=== PATIENT | male | born 1950 | race Two or more races ===

== ENCOUNTER 2021-05-15 11:25 | Inpatient (IN) | payer OTHER, MEDICAID ==
[~2021-05-15] VITALS: Ht 177.8 cm; Wt 82.2 kg
[2021-05-15] MEDS ORDERED: DexAMETHasone SOD PHOS 10MG/1ML VIAL INJ IV ONE (11:45)
[2021-05-15] MEDS ORDERED: ZINC SULFATE 220mg CAP or TAB PO ONE (11:45)
[2021-05-15] MEDS ORDERED: AZITHROMYCIN 500MG/ 250ML 250 ML IV ONE (11:45)
[2021-05-15] MEDS ORDERED: cefTRIAXone 1GM/50ML D5W 50 ML IV ONE (11:45)
[2021-05-15 12:05] LABS: Basophils # (auto) 0 10 ^3/uL (0-0.2); Basophils % (auto) 0.1 % (0.0-2.0); Eosinophils # (auto) 0 10 ^3/uL (0-0.8); Eosinophils % (auto) 0.1 % (0.0-7.0); Hematocrit 42.4 % (41.0-53.0); Hemoglobin 14.6 g/dL (13.5-17.5); Lymphocytes # (auto) 0.7 10 ^3/uL (0.4-5.4); Lymphocytes % (auto) 5.1 % (10.0-50.0); Mean Corpuscular Hemoglobin 31.2 pg (28.0-32.0); Mean Corpuscular Hgb Conc. 34.4 g/dL (32.0-36.0); Mean Corpuscular Volume 90.6 fL (80.0-100.0); Monocytes # (auto) 0.4 10 ^3/uL (0-1.3); Monocytes % (auto) 2.9 % (0.0-12.0); Neutrophils # (auto) 12.5 10 ^3/uL (1.6-8.6); Neutrophils % (auto) 91.8 % (37.0-80.0); Nucleated Red Blood Cells % 0.1 %; Red Blood Cells 4.68 10^6/uL (4.5-5.90); Red Cell Distribution Width 12.8 % (11.8-14.3); White Blood Cell 13.6 10^3/uL (4.4-10.8)
[2021-05-15 12:29] LABS: Albumin 2.5 g/dL (3.4-5.0); Anion Gap 14 (5-15); Blood Urea Nitrogen 26 mg/dL (7-18); Calcium 7.7 mg/dL (8.5-10.1); Carbon Dioxide 23 mmol/L (21-32); Chloride 89 mmol/L (98-107); Glucose 203 mg/dL (74-106); Potassium 3.7 mmol/L (3.5-5.1); Sodium 126 mmol/L (136-145)
[2021-05-15 12:33] LABS: Alanine Aminotransferase 44 U/L (16-61); Alkaline Phosphatase 90 U/L (45-117); Aspartate Aminotransferase 65 U/L (15-37); GFR African American 63 mL/min; GFR Non-African American 52 mL/min; Total Protein 7.8 g/dL (6.4-8.2)
[2021-05-15 13:03] LABS: BUN/Creatinine Ratio 18.2
[2021-05-15 13:07] LABS: CRP High Sensitivity > 0.950 mg/dL (< 0.3)
[2021-05-15] MEDS ORDERED: NITROGLYCERIN 0.4 MG SL TAB SL PRN (14:15)
[2021-05-15] MEDS ORDERED: ONDANSETRON HCL 4 MG/2 ML VIAL IV PRN ×2 (14:15→19:30)
[2021-05-15] MEDS ORDERED: HYDROcodone-ACET 5/325MG TAB PO PRN (14:15)
[2021-05-15] MEDS ORDERED: MORPHINE SULFATE 4 MG/ML SYR/VIAL IV PRN (14:15)
[2021-05-15] MEDS ORDERED: MORPHINE SULFATE INJECTION 2 MG/ML SYRG IV PRN (14:15)
[2021-05-15] MEDS ORDERED: ACETAMINOPHEN 325 MG TAB PO PRN (14:15)
[2021-05-15] MEDS ORDERED: DEXTROSE (50%) 50ML SYRG IV PRN (14:15)
[2021-05-15] MEDS ORDERED: DOCUSATE SOD 100 MG CAP PO PRN (14:15)
[2021-05-15 14:31] LABS: INR 1.18 (0.9-1.15)
[2021-05-15 14:37] VITALS: BP 120/69
[2021-05-15 16:43] VITALS: BP 114/71
[2021-05-15] MEDS: ACCU-CHEK COMFORT CURVE STRIP VI SCH ×2 (17:41→21:29)
[2021-05-15] MEDS: InsuLIN REG 1unit/0.01ml Soln (100units/ml) SC SCH ×2 (17:44→21:38)
[2021-05-15] MEDS ORDERED: hydrALAZINE HCL 20 MG/ML VL IV PRN (19:30)
[2021-05-15 21:06] VITALS: BP 122/74
[2021-05-15] MEDS: ASCORBIC ACID 500 MG TAB PO SCH (21:28)
[2021-05-15] MEDS: ENOXAPARIN SOD 40 MG/0.4 ML SYRINGE SC SCH (22:00)
[2021-05-15] MEDS: ALBUTEROL SULF HFA 90MCG INH 200DOSE IN SCH (22:00)
[2021-05-16 05:00] VITALS: BP 119/70
[2021-05-16 06:23] LABS: Hematocrit 39.5 % (41.0-53.0); Hemoglobin 13.9 g/dL (13.5-17.5); Mean Corpuscular Hemoglobin 31.6 pg (28.0-32.0); Mean Corpuscular Hgb Conc. 35.1 g/dL (32.0-36.0); Mean Corpuscular Volume 90.2 fL (80.0-100.0); Red Blood Cells 4.39 10^6/uL (4.5-5.90); Red Cell Distribution Width 12.8 % (11.8-14.3); White Blood Cell 12.1 10^3/uL (4.4-10.8)
[2021-05-16 06:37] LABS: Potassium 3.6 mmol/L (3.5-5.1)
[2021-05-16 06:42] LABS: Albumin 2.3 g/dL (3.4-5.0); BUN/Creatinine Ratio 28.2; Bilirubin, Total 0.7 mg/dL (0.2-1.0); Calcium 7.6 mg/dL (8.5-10.1); Total Protein 6.8 g/dL (6.4-8.2)
[2021-05-16] MEDS: ACCU-CHEK COMFORT CURVE STRIP VI SCH ×4 (06:46→21:31)
[2021-05-16] MEDS: InsuLIN REG 1unit/0.01ml Soln (100units/ml) SC SCH ×4 (06:59→21:31)
[2021-05-16] MEDS: ALBUTEROL SULF HFA 90MCG INH 200DOSE IN SCH ×3 (07:17→20:59)
[2021-05-16 07:22] LABS: Basophils % (manual) 0 (0.0-2.0); Blast Cells 0; Eosinophils % (manual) 0 (0-7); Metamyelocytes % 0; Promyelocytes % 0; Reactive Lymphocytes 0
[2021-05-16] MEDS: ENOXAPARIN SOD 40 MG/0.4 ML SYRINGE SC SCH (08:42)
[2021-05-16] MEDS: ZINC SULFATE 220mg CAP or TAB PO SCH (08:43)
[2021-05-16] MEDS: FAMOTIDINE (10MG/ML) 2ML VL IV SCH (08:43)
[2021-05-16] MEDS: DexAMETHasone SOD PHOS 10MG/1ML VIAL INJ IV SCH (08:43)
[2021-05-16] MEDS: MULTIPLE VITAMIN TAB PO SCH (08:44)
[2021-05-16] MEDS: AZITHROMYCIN 500MG/ 250ML 250 ML IV SCH (08:44)
[2021-05-16] MEDS: ASCORBIC ACID 500 MG TAB PO SCH ×2 (08:44→21:31)
[2021-05-16] MEDS: CHOLECALCIFEROL (VITD3) 2,000 UNIT CAP/TAB PO SCH (08:44)
[2021-05-16 08:46] VITALS: BP 124/77
[2021-05-16 08:53] LABS: Band Neutrophils % (manual) 3; Lymphocytes % (manual) 2 (10.0-50.0); Monocytes % (manual) 5 (0-12); Myelocytes % 1
[2021-05-16] MEDS ORDERED: ENOXAPARIN SOD 40 MG/0.4 ML SYRINGE SC SCH (10:00)
[2021-05-16 12:48] VITALS: BP 131/90
[2021-05-16 16:42] VITALS: BP 130/80
[2021-05-16] MEDS ORDERED: IOHEXOL 350 MG/ML 100ML IJ ONE (17:57)
[2021-05-16] MEDS: ENOXAPARIN SOD 100 MG/1 ML SYRINGE SC SCH (21:31)
[2021-05-16 22:00] VITALS: BP 125/74
[2021-05-17 05:00] VITALS: BP 115/73
[2021-05-17] MEDS: ACCU-CHEK COMFORT CURVE STRIP VI SCH ×4 (06:24→22:00)
[2021-05-17] MEDS: InsuLIN REG 1unit/0.01ml Soln (100units/ml) SC SCH ×4 (06:24→22:35)
[2021-05-17 06:49] LABS: Hematocrit 38.7 % (41.0-53.0); Hemoglobin 13.9 g/dL (13.5-17.5); Mean Corpuscular Hemoglobin 32.3 pg (28.0-32.0); Mean Corpuscular Hgb Conc. 35.9 g/dL (32.0-36.0); Red Cell Distribution Width 12.6 % (11.8-14.3); White Blood Cell 11.8 10^3/uL (4.4-10.8)
[2021-05-17 06:51] LABS: Basophils % (manual) 0 (0.0-2.0); Blast Cells 0; Eosinophils % (manual) 0 (0-7); Myelocytes % 0; Promyelocytes % 0; Reactive Lymphocytes 0
[2021-05-17 06:52] LABS: Calcium 7.8 mg/dL (8.5-10.1); Potassium 3.7 mmol/L (3.5-5.1)
[2021-05-17 07:00] LABS: BUN/Creatinine Ratio 30.7; CRP High Sensitivity 10.9 mg/dL (< 0.3)
[2021-05-17 08:21] LABS: Band Neutrophils % (manual) 5; Lymphocytes % (manual) 1 (10.0-50.0); Metamyelocytes % 1; Monocytes % (manual) 3 (0-12)
[2021-05-17 08:32] VITALS: BP 130/75
[2021-05-17] MEDS: ALBUTEROL SULF HFA 90MCG INH 200DOSE IN SCH ×3 (09:15→19:31)
[2021-05-17] MEDS: FAMOTIDINE (10MG/ML) 2ML VL IV SCH (10:09)
[2021-05-17] MEDS: DexAMETHasone SOD PHOS 10MG/1ML VIAL INJ IV SCH (10:09)
[2021-05-17] MEDS: ENOXAPARIN SOD 100 MG/1 ML SYRINGE SC SCH ×2 (10:12→21:30)
[2021-05-17] MEDS: MULTIPLE VITAMIN TAB PO SCH (10:16)
[2021-05-17] MEDS: ZINC SULFATE 220mg CAP or TAB PO SCH (10:16)
[2021-05-17] MEDS: ASCORBIC ACID 500 MG TAB PO SCH ×2 (10:16→21:30)
[2021-05-17] MEDS: ASPirin 81 mg TAB PO SCH (10:16)
[2021-05-17] MEDS: CHOLECALCIFEROL (VITD3) 2,000 UNIT CAP/TAB PO SCH (10:17)
[2021-05-17] MEDS: AZITHROMYCIN 500MG/ 250ML 250 ML IV SCH (10:17)
[2021-05-17 12:35] VITALS: BP 134/78
[2021-05-17 12:47] LABS: Urine Bacteria NONE SEEN /hpf (None Seen); Urine Blood TRACE /uL (Negative); Urine WBC 1 /hpf (0 - 3)
[2021-05-17 17:00] VITALS: BP 121/69
[2021-05-17 22:00] VITALS: BP 121/77
[2021-05-18 05:00] VITALS: BP 128/74
[2021-05-18] MEDS: ALBUTEROL SULF HFA 90MCG INH 200DOSE IN SCH ×2 (05:44→19:18)
[2021-05-18 06:11] LABS: Hematocrit 38.9 % (41.0-53.0); Hemoglobin 13.8 g/dL (13.5-17.5); Mean Corpuscular Hgb Conc. 35.5 g/dL (32.0-36.0); Mean Corpuscular Volume 90.1 fL (80.0-100.0); Red Blood Cells 4.31 10^6/uL (4.5-5.90); Red Cell Distribution Width 12.9 % (11.8-14.3); White Blood Cell 9.9 10^3/uL (4.4-10.8)
[2021-05-18 06:39] LABS: Basophils % (manual) 0 (0.0-2.0); Blast Cells 0; Eosinophils % (manual) 0 (0-7); Myelocytes % 0; Promyelocytes % 0; Reactive Lymphocytes 0
[2021-05-18 06:45] LABS: Potassium 3.8 mmol/L (3.5-5.1)
[2021-05-18] MEDS: ACCU-CHEK COMFORT CURVE STRIP VI SCH ×4 (06:50→21:19)
[2021-05-18 06:59] LABS: BUN/Creatinine Ratio 31.3; CRP High Sensitivity 5.24 mg/dL (< 0.3); Calcium 8.2 mg/dL (8.5-10.1)
[2021-05-18] MEDS: InsuLIN REG 1unit/0.01ml Soln (100units/ml) SC SCH ×4 (07:17→21:19)
[2021-05-18 08:00] VITALS: BP 128/75
[2021-05-18 08:15] VITALS: BP 128/74
[2021-05-18] MEDS: ASPirin 81 mg TAB PO SCH (09:45)
[2021-05-18] MEDS: DexAMETHasone SOD PHOS 10MG/1ML VIAL INJ IV SCH (09:48)
[2021-05-18] MEDS: AZITHROMYCIN 500MG/ 250ML 250 ML IV SCH (09:50)
[2021-05-18] MEDS: ZINC SULFATE 220mg CAP or TAB PO SCH (09:50)
[2021-05-18] MEDS: MULTIPLE VITAMIN TAB PO SCH (09:50)
[2021-05-18] MEDS: CHOLECALCIFEROL (VITD3) 2,000 UNIT CAP/TAB PO SCH (09:51)
[2021-05-18] MEDS: ENOXAPARIN SOD 100 MG/1 ML SYRINGE SC SCH ×2 (09:52→21:19)
[2021-05-18] MEDS: FAMOTIDINE (10MG/ML) 2ML VL IV SCH (09:52)
[2021-05-18] MEDS: ASCORBIC ACID 500 MG TAB PO SCH ×2 (10:00→21:19)
[2021-05-18 12:00] VITALS: BP 124/75
[2021-05-18 12:20] LABS: Band Neutrophils % (manual) 4; Lymphocytes % (manual) 2 (10.0-50.0); Metamyelocytes % 1; Monocytes % (manual) 4 (0-12)
[2021-05-18 16:00] VITALS: BP 127/74
[2021-05-18 22:00] VITALS: BP 130/48
[2021-05-19 05:00] VITALS: BP 133/74
[2021-05-19] MEDS: ACCU-CHEK COMFORT CURVE STRIP VI SCH ×4 (06:03→21:22)
[2021-05-19] MEDS: InsuLIN REG 1unit/0.01ml Soln (100units/ml) SC SCH ×4 (06:41→21:27)
[2021-05-19 06:58] LABS: Calcium 7.9 mg/dL (8.5-10.1)
[2021-05-19 07:06] LABS: BUN/Creatinine Ratio 30.3; CRP High Sensitivity 3.83 mg/dL (< 0.3)
[2021-05-19 07:15] LABS: Hematocrit 40.2 % (41.0-53.0); Hemoglobin 14.3 g/dL (13.5-17.5); Mean Corpuscular Hemoglobin 32.3 pg (28.0-32.0); Mean Corpuscular Hgb Conc. 35.5 g/dL (32.0-36.0); Red Blood Cells 4.42 10^6/uL (4.5-5.90); Red Cell Distribution Width 12.8 % (11.8-14.3); White Blood Cell 9.9 10^3/uL (4.4-10.8)
[2021-05-19 07:27] LABS: Band Neutrophils % (manual) 0; Basophils % (manual) 0 (0.0-2.0); Blast Cells 0; Metamyelocytes % 0; Myelocytes % 0; Promyelocytes % 0; Reactive Lymphocytes 0
[2021-05-19] MEDS: ALBUTEROL SULF HFA 90MCG INH 200DOSE IN SCH (07:38)
[2021-05-19 08:00] VITALS: BP 124/73
[2021-05-19] MEDS: DexAMETHasone SOD PHOS 10MG/1ML VIAL INJ IV SCH (09:30)
[2021-05-19] MEDS: AZITHROMYCIN 500MG/ 250ML 250 ML IV SCH (09:30)
[2021-05-19] MEDS: FAMOTIDINE (10MG/ML) 2ML VL IV SCH (09:30)
[2021-05-19] MEDS: MULTIPLE VITAMIN TAB PO SCH (09:31)
[2021-05-19] MEDS: ENOXAPARIN SOD 100 MG/1 ML SYRINGE SC SCH ×2 (09:31→21:23)
[2021-05-19] MEDS: ASPirin 81 mg TAB PO SCH (09:31)
[2021-05-19] MEDS: ASCORBIC ACID 500 MG TAB PO SCH ×2 (09:31→21:22)
[2021-05-19] MEDS: ZINC SULFATE 220mg CAP or TAB PO SCH (09:31)
[2021-05-19] MEDS: CHOLECALCIFEROL (VITD3) 2,000 UNIT CAP/TAB PO SCH (09:32)
[2021-05-19 09:47] LABS: Eosinophils % (manual) 4 (0-7); Lymphocytes % (manual) 10 (10.0-50.0); Monocytes % (manual) 4 (0-12)
[2021-05-19 12:00] VITALS: BP 124/73
[2021-05-19 16:41] VITALS: BP 128/82
[2021-05-19] MEDS: ALBUTEROL SULF HFA 90MCG INH 200DOSE IN PRN (20:38)
[2021-05-20 05:00] VITALS: BP_SYST 107; BP_SYST 154; BP_DIAS 73; BP_DIAS 81
[2021-05-20] MEDS: ACCU-CHEK COMFORT CURVE STRIP VI SCH ×4 (06:21→21:38)
[2021-05-20] MEDS: InsuLIN REG 1unit/0.01ml Soln (100units/ml) SC SCH ×4 (06:21→21:42)
[2021-05-20 06:31] LABS: Hemoglobin 14.2 g/dL (13.5-17.5); Mean Corpuscular Hemoglobin 31.6 pg (28.0-32.0); Mean Corpuscular Hgb Conc. 34.6 g/dL (32.0-36.0); Mean Corpuscular Volume 91.3 fL (80.0-100.0); Red Blood Cells 4.49 10^6/uL (4.5-5.90); Red Cell Distribution Width 12.7 % (11.8-14.3)
[2021-05-20 06:39] LABS: Basophils % (manual) 0 (0.0-2.0); Blast Cells 0; Promyelocytes % 0; Reactive Lymphocytes 0
[2021-05-20 06:40] LABS: BUN/Creatinine Ratio 29.3; Calcium 7.8 mg/dL (8.5-10.1); Potassium 4.1 mmol/L (3.5-5.1)
[2021-05-20 06:49] LABS: CRP High Sensitivity 7.63 mg/dL (< 0.3)
[2021-05-20 08:44] LABS: Band Neutrophils % (manual) 1; Eosinophils % (manual) 2 (0-7); Lymphocytes % (manual) 3 (10.0-50.0); Metamyelocytes % 1; Monocytes % (manual) 2 (0-12); Myelocytes % 1
[2021-05-20 09:00] VITALS: BP 127/74
[2021-05-20] MEDS: DexAMETHasone SOD PHOS 10MG/1ML VIAL INJ IV SCH (09:15)
[2021-05-20] MEDS: MULTIPLE VITAMIN TAB PO SCH (09:16)
[2021-05-20] MEDS: CHOLECALCIFEROL (VITD3) 2,000 UNIT CAP/TAB PO SCH (09:16)
[2021-05-20] MEDS: ASPirin 81 mg TAB PO SCH (09:16)
[2021-05-20] MEDS: ENOXAPARIN SOD 100 MG/1 ML SYRINGE SC SCH ×2 (09:16→21:38)
[2021-05-20] MEDS: FAMOTIDINE (10MG/ML) 2ML VL IV SCH (09:16)
[2021-05-20] MEDS: ZINC SULFATE 220mg CAP or TAB PO SCH (09:17)
[2021-05-20] MEDS: ASCORBIC ACID 500 MG TAB PO SCH ×2 (09:17→21:38)
[2021-05-20] MEDS: AZITHROMYCIN 500MG/ 250ML 250 ML IV SCH (10:30)
[2021-05-20 13:00] VITALS: BP 131/81
[2021-05-20 16:57] VITALS: BP 119/78
[2021-05-20] MEDS: ALBUTEROL SULF HFA 90MCG INH 200DOSE IN PRN (21:43)
[2021-05-20 22:00] VITALS: BP 123/74
[2021-05-21] VITALS (7 sets, daily range): BP systolic 120–144; BP diastolic 68–86
[2021-05-21] MEDS: ALBUTEROL SULF HFA 90MCG INH 200DOSE IN PRN ×3 (05:49→23:09)
[2021-05-21] MEDS: ACCU-CHEK COMFORT CURVE STRIP VI SCH ×4 (06:13→22:00)
[2021-05-21] MEDS: InsuLIN REG 1unit/0.01ml Soln (100units/ml) SC SCH ×4 (06:16→22:00)
[2021-05-21 06:59] LABS: Hematocrit 38.7 % (41.0-53.0); Hemoglobin 13.4 g/dL (13.5-17.5); Mean Corpuscular Hemoglobin 31.5 pg (28.0-32.0); Mean Corpuscular Hgb Conc. 34.7 g/dL (32.0-36.0); Mean Corpuscular Volume 90.6 fL (80.0-100.0); Red Blood Cells 4.27 10^6/uL (4.5-5.90); Red Cell Distribution Width 12.9 % (11.8-14.3); White Blood Cell 13.1 10^3/uL (4.4-10.8)
[2021-05-21 07:17] LABS: Potassium 4.6 mmol/L (3.5-5.1)
[2021-05-21 07:20] LABS: Basophils % (manual) 0 (0.0-2.0); Blast Cells 0; Myelocytes % 0; Promyelocytes % 0; Reactive Lymphocytes 0
[2021-05-21 07:32] LABS: BUN/Creatinine Ratio 36.6; Calcium 7.8 mg/dL (8.5-10.1)
[2021-05-21 08:59] LABS: Band Neutrophils % (manual) 3; Eosinophils % (manual) 1 (0-7); Lymphocytes % (manual) 5 (10.0-50.0); Metamyelocytes % 3; Monocytes % (manual) 1 (0-12)
[2021-05-21] MEDS: FAMOTIDINE (10MG/ML) 2ML VL IV SCH (09:32)
[2021-05-21] MEDS: DexAMETHasone SOD PHOS 10MG/1ML VIAL INJ IV SCH (09:32)
[2021-05-21] MEDS: AZITHROMYCIN 500MG/ 250ML 250 ML IV SCH (09:32)
[2021-05-21] MEDS: ZINC SULFATE 220mg CAP or TAB PO SCH (09:33)
[2021-05-21] MEDS: ASCORBIC ACID 500 MG TAB PO SCH ×2 (09:33→22:56)
[2021-05-21] MEDS: ASPirin 81 mg TAB PO SCH (09:33)
[2021-05-21] MEDS: CHOLECALCIFEROL (VITD3) 2,000 UNIT CAP/TAB PO SCH (09:33)
[2021-05-21] MEDS: MULTIPLE VITAMIN TAB PO SCH (09:33)
[2021-05-21] MEDS: ENOXAPARIN SOD 100 MG/1 ML SYRINGE SC SCH ×2 (09:34→22:57)
[2021-05-22 05:00] VITALS: BP 122/70
[2021-05-22 05:56] LABS: Hemoglobin 13.7 g/dL (13.5-17.5); Red Cell Distribution Width 12.9 % (11.8-14.3)
[2021-05-22 06:02] LABS: Mean Corpuscular Hgb Conc. 35.1 g/dL (32.0-36.0); Mean Corpuscular Volume 91.3 fL (80.0-100.0); Red Blood Cells 4.28 10^6/uL (4.5-5.90); White Blood Cell 13.1 10^3/uL (4.4-10.8)
[2021-05-22] MEDS: ALBUTEROL SULF HFA 90MCG INH 200DOSE IN PRN ×2 (06:08→19:43)
[2021-05-22 06:16] LABS: Basophils % (manual) 0 (0.0-2.0); Blast Cells 0; Eosinophils % (manual) 0 (0-7); Metamyelocytes % 0; Myelocytes % 0; Promyelocytes % 0; Reactive Lymphocytes 0
[2021-05-22] MEDS: ACCU-CHEK COMFORT CURVE STRIP VI SCH ×4 (06:17→21:44)
[2021-05-22] MEDS: InsuLIN REG 1unit/0.01ml Soln (100units/ml) SC SCH ×4 (06:17→21:51)
[2021-05-22 06:21] LABS: BUN/Creatinine Ratio 35.6; Potassium 4.6 mmol/L (3.5-5.1)
[2021-05-22 07:24] LABS: CRP High Sensitivity 5.51 mg/dL (< 0.3)
[2021-05-22 08:00] VITALS: BP 125/76
[2021-05-22 09:00] VITALS: BP 125/76
[2021-05-22] MEDS: FAMOTIDINE (10MG/ML) 2ML VL IV SCH (10:29)
[2021-05-22] MEDS: AZITHROMYCIN 500MG/ 250ML 250 ML IV SCH (10:29)
[2021-05-22] MEDS: DexAMETHasone SOD PHOS 10MG/1ML VIAL INJ IV SCH (10:29)
[2021-05-22] MEDS: ASPirin 81 mg TAB PO SCH (10:30)
[2021-05-22] MEDS: ENOXAPARIN SOD 100 MG/1 ML SYRINGE SC SCH ×2 (10:30→21:44)
[2021-05-22] MEDS: CHOLECALCIFEROL (VITD3) 2,000 UNIT CAP/TAB PO SCH (10:30)
[2021-05-22] MEDS: ASCORBIC ACID 500 MG TAB PO SCH ×2 (10:30→21:44)
[2021-05-22] MEDS: MULTIPLE VITAMIN TAB PO SCH (10:30)
[2021-05-22] MEDS: ZINC SULFATE 220mg CAP or TAB PO SCH (10:30)
[2021-05-22 10:45] LABS: Band Neutrophils % (manual) 1
[2021-05-22 10:46] LABS: Lymphocytes % (manual) 5 (10.0-50.0); Monocytes % (manual) 5 (0-12)
[2021-05-22 16:35] VITALS: BP 135/83
[2021-05-22 22:08] VITALS: BP 117/73
[2021-05-23 05:25] VITALS: BP 141/79
[2021-05-23] MEDS: ALBUTEROL SULF HFA 90MCG INH 200DOSE IN PRN (05:57)
[2021-05-23] MEDS: ACCU-CHEK COMFORT CURVE STRIP VI SCH ×4 (06:18→21:22)
[2021-05-23] MEDS: InsuLIN REG 1unit/0.01ml Soln (100units/ml) SC SCH ×4 (06:18→21:35)
[2021-05-23 06:19] LABS: Mean Corpuscular Volume 92.3 fL (80.0-100.0)
[2021-05-23 06:21] LABS: Hematocrit 40.9 % (41.0-53.0); Mean Corpuscular Hemoglobin 31.6 pg (28.0-32.0); Mean Corpuscular Hgb Conc. 34.2 g/dL (32.0-36.0); Red Blood Cells 4.43 10^6/uL (4.5-5.90); Red Cell Distribution Width 12.9 % (11.8-14.3); White Blood Cell 11.1 10^3/uL (4.4-10.8)
[2021-05-23 06:26] LABS: Band Neutrophils % (manual) 0; Basophils % (manual) 0 (0.0-2.0); Blast Cells 0; Eosinophils % (manual) 0 (0-7); Metamyelocytes % 0; Myelocytes % 0; Promyelocytes % 0; Reactive Lymphocytes 0
[2021-05-23 06:43] LABS: Calcium 8.3 mg/dL (8.5-10.1); Potassium 4.8 mmol/L (3.5-5.1)
[2021-05-23 06:54] LABS: BUN/Creatinine Ratio 42.2; CRP High Sensitivity 8.47 mg/dL (< 0.3)
[2021-05-23 08:00] VITALS: BP 140/77
[2021-05-23 09:07] VITALS: BP 140/77
[2021-05-23] MEDS: ZINC SULFATE 220mg CAP or TAB PO SCH (10:16)
[2021-05-23] MEDS: MULTIPLE VITAMIN TAB PO SCH (10:16)
[2021-05-23] MEDS: AZITHROMYCIN 500MG/ 250ML 250 ML IV SCH (10:16)
[2021-05-23] MEDS: ASPirin 81 mg TAB PO SCH (10:16)
[2021-05-23] MEDS: FAMOTIDINE (10MG/ML) 2ML VL IV SCH (10:16)
[2021-05-23] MEDS: CHOLECALCIFEROL (VITD3) 2,000 UNIT CAP/TAB PO SCH (10:17)
[2021-05-23] MEDS: ASCORBIC ACID 500 MG TAB PO SCH ×2 (10:17→21:21)
[2021-05-23] MEDS: ENOXAPARIN SOD 100 MG/1 ML SYRINGE SC SCH ×2 (10:17→21:21)
[2021-05-23 11:54] LABS: Lymphocytes % (manual) 3 (10.0-50.0); Monocytes % (manual) 4 (0-12)
[2021-05-23 13:00] VITALS: BP 120/73
[2021-05-23 16:30] VITALS: BP 118/65
[2021-05-23 22:00] VITALS: BP 108/59
[2021-05-24 05:30] VITALS: BP 119/72
[2021-05-24] MEDS: ALBUTEROL SULF HFA 90MCG INH 200DOSE IN PRN ×2 (05:43→22:43)
[2021-05-24] MEDS: ACCU-CHEK COMFORT CURVE STRIP VI SCH ×4 (06:02→21:47)
[2021-05-24] MEDS: InsuLIN REG 1unit/0.01ml Soln (100units/ml) SC SCH ×4 (06:02→22:20)
[2021-05-24 09:00] VITALS: BP 119/78
[2021-05-24 09:38] VITALS: BP 119/78
[2021-05-24] MEDS: AZITHROMYCIN 500MG/ 250ML 250 ML IV SCH (09:41)
[2021-05-24] MEDS: ASPirin 81 mg TAB PO SCH (09:42)
[2021-05-24] MEDS: ASCORBIC ACID 500 MG TAB PO SCH ×2 (09:42→21:44)
[2021-05-24] MEDS: ZINC SULFATE 220mg CAP or TAB PO SCH (09:42)
[2021-05-24] MEDS: ENOXAPARIN SOD 100 MG/1 ML SYRINGE SC SCH ×2 (09:42→21:47)
[2021-05-24] MEDS: CHOLECALCIFEROL (VITD3) 2,000 UNIT CAP/TAB PO SCH (09:42)
[2021-05-24] MEDS: MULTIPLE VITAMIN TAB PO SCH (09:42)
[2021-05-24] MEDS: FAMOTIDINE (10MG/ML) 2ML VL IV SCH (09:42)
[2021-05-24 13:00] VITALS: BP 117/75
[2021-05-24 17:00] VITALS: BP 124/71
[2021-05-24 22:01] VITALS: BP 110/71
[2021-05-25 05:00] VITALS: BP 112/66
[2021-05-25] MEDS: InsuLIN REG 1unit/0.01ml Soln (100units/ml) SC SCH ×4 (06:05→21:56)
[2021-05-25] MEDS: ACCU-CHEK COMFORT CURVE STRIP VI SCH ×4 (06:05→21:41)
[2021-05-25] MEDS: ALBUTEROL SULF HFA 90MCG INH 200DOSE IN PRN ×2 (08:13→19:33)
[2021-05-25 08:38] VITALS: BP 121/76
[2021-05-25] MEDS: FAMOTIDINE (10MG/ML) 2ML VL IV SCH (09:35)
[2021-05-25] MEDS: MULTIPLE VITAMIN TAB PO SCH (09:36)
[2021-05-25] MEDS: CHOLECALCIFEROL (VITD3) 2,000 UNIT CAP/TAB PO SCH (09:36)
[2021-05-25] MEDS: ZINC SULFATE 220mg CAP or TAB PO SCH (09:36)
[2021-05-25] MEDS: ASCORBIC ACID 500 MG TAB PO SCH ×2 (09:36→21:41)
[2021-05-25] MEDS: ENOXAPARIN SOD 100 MG/1 ML SYRINGE SC SCH ×2 (09:36→21:40)
[2021-05-25] MEDS: ASPirin 81 mg TAB PO SCH (09:36)
[2021-05-25] MEDS: AZITHROMYCIN 500MG/ 250ML 250 ML IV SCH (09:42)
[2021-05-25 12:35] VITALS: BP 115/73
[2021-05-25 16:58] VITALS: BP 109/66
[2021-05-25 22:00] VITALS: BP 118/74
[2021-05-26] VITALS (8 sets, daily range): BP systolic 105–134; BP diastolic 65–79
[2021-05-26] MEDS: ACCU-CHEK COMFORT CURVE STRIP VI SCH ×4 (06:05→21:48)
[2021-05-26] MEDS: InsuLIN REG 1unit/0.01ml Soln (100units/ml) SC SCH ×4 (06:06→21:49)
[2021-05-26] MEDS: FAMOTIDINE (10MG/ML) 2ML VL IV SCH (09:35)
[2021-05-26] MEDS: ASPirin 81 mg TAB PO SCH (09:35)
[2021-05-26] MEDS: ZINC SULFATE 220mg CAP or TAB PO SCH (09:36)
[2021-05-26] MEDS: CHOLECALCIFEROL (VITD3) 2,000 UNIT CAP/TAB PO SCH (09:36)
[2021-05-26] MEDS: MULTIPLE VITAMIN TAB PO SCH (09:36)
[2021-05-26] MEDS: ASCORBIC ACID 500 MG TAB PO SCH ×2 (09:36→21:48)
[2021-05-26] MEDS: ENOXAPARIN SOD 100 MG/1 ML SYRINGE SC SCH (09:37)
[2021-05-26] MEDS: ALBUTEROL SULF HFA 90MCG INH 200DOSE IN PRN ×2 (13:58→21:47)
[2021-05-26] MEDS: APIXABAN 5 MG TAB PO SCH (21:48)
[2021-05-27] VITALS (7 sets, daily range): BP systolic 107–128; BP diastolic 69–81
[2021-05-27] MEDS: ALBUTEROL SULF HFA 90MCG INH 200DOSE IN PRN ×2 (06:07→20:14)
[2021-05-27] MEDS: ACCU-CHEK COMFORT CURVE STRIP VI SCH ×4 (06:18→21:13)
[2021-05-27] MEDS: InsuLIN REG 1unit/0.01ml Soln (100units/ml) SC SCH ×4 (06:21→21:17)
[2021-05-27] MEDS: APIXABAN 5 MG TAB PO SCH ×2 (09:50→21:12)
[2021-05-27] MEDS: ASPirin 81 mg TAB PO SCH (09:50)
[2021-05-27] MEDS: ZINC SULFATE 220mg CAP or TAB PO SCH (09:50)
[2021-05-27] MEDS: MULTIPLE VITAMIN TAB PO SCH (09:50)
[2021-05-27] MEDS: FAMOTIDINE (10MG/ML) 2ML VL IV SCH (09:50)
[2021-05-27] MEDS: ASCORBIC ACID 500 MG TAB PO SCH ×2 (09:51→21:13)
[2021-05-27] MEDS: CHOLECALCIFEROL (VITD3) 2,000 UNIT CAP/TAB PO SCH (09:51)
[2021-05-27 11:28] LABS: Hematocrit 41.4 % (41.0-53.0); Hemoglobin 14.5 g/dL (13.5-17.5); Mean Corpuscular Hemoglobin 31.8 pg (28.0-32.0); Mean Corpuscular Hgb Conc. 34.9 g/dL (32.0-36.0); Mean Corpuscular Volume 91.3 fL (80.0-100.0); Red Blood Cells 4.54 10^6/uL (4.5-5.90); White Blood Cell 11.8 10^3/uL (4.4-10.8)
[2021-05-27 11:30] LABS: Basophils % (manual) 0 (0.0-2.0); Blast Cells 0; Myelocytes % 0; Promyelocytes % 0; Reactive Lymphocytes 0
[2021-05-27 11:44] LABS: Band Neutrophils % (manual) 2; Eosinophils % (manual) 1 (0-7); Lymphocytes % (manual) 7 (10.0-50.0); Metamyelocytes % 2; Monocytes % (manual) 2 (0-12)
[2021-05-27 12:26] LABS: BUN/Creatinine Ratio 29.9; Calcium 8.3 mg/dL (8.5-10.1); Magnesium 2.9 mg/dL (1.6-2.6); Potassium 4.7 mmol/L (3.5-5.1); Uric Acid 3.4 mg/dL (3.5-7.2)
[2021-05-28] VITALS (7 sets, daily range): BP systolic 101–125; BP diastolic 64–73
[2021-05-28] MEDS: ACCU-CHEK COMFORT CURVE STRIP VI SCH ×4 (06:29→22:11)
[2021-05-28] MEDS: InsuLIN REG 1unit/0.01ml Soln (100units/ml) SC SCH ×4 (06:30→22:10)
[2021-05-28] MEDS: ALBUTEROL SULF HFA 90MCG INH 200DOSE IN PRN ×2 (08:54→22:02)
[2021-05-28] MEDS: ASPirin 81 mg TAB PO SCH (10:53)
[2021-05-28] MEDS: CHOLECALCIFEROL (VITD3) 2,000 UNIT CAP/TAB PO SCH (10:53)
[2021-05-28] MEDS: FAMOTIDINE (10MG/ML) 2ML VL IV SCH (10:54)
[2021-05-28] MEDS: MULTIPLE VITAMIN TAB PO SCH (10:54)
[2021-05-28] MEDS: APIXABAN 5 MG TAB PO SCH ×2 (10:54→22:09)
[2021-05-28] MEDS: ZINC SULFATE 220mg CAP or TAB PO SCH (10:54)
[2021-05-28] MEDS: ASCORBIC ACID 500 MG TAB PO SCH ×2 (10:54→22:09)
[2021-05-29 05:00] VITALS: BP 120/73
[2021-05-29] MEDS: ACCU-CHEK COMFORT CURVE STRIP VI SCH ×2 (06:38→11:48)
[2021-05-29] MEDS: InsuLIN REG 1unit/0.01ml Soln (100units/ml) SC SCH ×2 (06:38→11:54)
[2021-05-29 08:40] VITALS: BP 111/67
[2021-05-29] MEDS: ASPirin 81 mg TAB PO SCH (09:09)
[2021-05-29] MEDS: FAMOTIDINE (10MG/ML) 2ML VL IV SCH (09:09)
[2021-05-29] MEDS: ZINC SULFATE 220mg CAP or TAB PO SCH (09:09)
[2021-05-29] MEDS: ASCORBIC ACID 500 MG TAB PO SCH (09:10)
[2021-05-29] MEDS: CHOLECALCIFEROL (VITD3) 2,000 UNIT CAP/TAB PO SCH (09:10)
[2021-05-29] MEDS: MULTIPLE VITAMIN TAB PO SCH (09:10)
[2021-05-29] MEDS: APIXABAN 5 MG TAB PO SCH (10:02)
[2021-05-29 12:48] VITALS: BP 118/69
[2021-05-29 14:16] VITALS: BP 111/67
[2021-06-02] MEDS ORDERED: APIXABAN 5 MG TAB PO SCH (22:00)
== END 2021-05-29 16:06 | disposition home health service (06) | DRG 177 ==
LOC: ER 11:25 → TELE 14:05 → TELE-EAST 15:39
PROVIDERS: ADMIT Nurse Practitioner; ATTEND Internal Medicine
DX: U07.1 COVID-19 (principal); I26.99 Other pulmonary embolism without acute cor pulmonale; J12.82 Pneumonia due to coronavirus disease 2019; J96.01 Acute respiratory failure with hypoxia; E44.0 Moderate protein-calorie malnutrition; D89.839 Cytokine release syndrome, grade unspecified; E11.65 Type 2 diabetes mellitus with hyperglycemia; I45.10 Unspecified right bundle-branch block; Z82.49 Family history of ischemic heart disease and other diseases of the circulatory system; Z68.26 Body mass index [BMI] 26.0-26.9, adult; Z79.01 Long term (current) use of anticoagulants; Z79.82 Long term (current) use of aspirin; Z83.3 Family history of diabetes mellitus
CPT/HCPCS: 36415; 71045; 71275; 80048; 80053; 81001; 82728; 82962; 83036; 83735; 83880; 84443; 84484; 84550; 85007; 85025; 85027; 85379; 85610; 85730; 86141; 93005; 93306; 93970; 94640; 96365; 96366; 96368; 96372; 96375; 99291; G0378; J0696; J1100; J1815; J3490